=== PATIENT | female | born 1955 | race Caucasian/White ===

== ENCOUNTER 2018-09-06 12:21 | Outpatient (CLI) | payer OTHER ==
[2018-09-06 14:12] LABS: Hemoglobin 15.4 g/dL (12.0-16.0); Mean Corpuscular HGB CONC 32.7 g/dL (32.0-36.0); Mean Corpuscular Hemoglobin 29.5 pg (27.0-31.0); Mean Corpuscular Volume 90.4 fL (78.0-98.0); Mean Platelet Volume 7.4 fL (7.4-10.4); Platelet Count 221 thou/uL (130-400); White Blood Cell (WBC) Count 6.9 thou/uL (4.8-10.8)
[2018-09-06 14:17] LABS: Prothrombin Time 13.5 SEC (12.0-14.7)
[2018-09-06 14:32] LABS: Anion Gap 11 mmol/L (10-20); BUN (Urea Nitrogen) 17 mg/dL (9.8-20.1); Calc. Creatinine Clearance 0 mL/min (70-130); Carbon Dioxide 29 mmol/L (22-29); Chloride 103 mmol/L (98-107); Estimated GFR-MDRD 80; Glucose 111 mg/dL (70-105); Potassium 4.7 mmol/L (3.5-5.1); Sodium 138 mmol/L (136-145)
[2018-09-06 17:03] LABS: Bilirubin Negative (Negative); Blood, Urine Negative (Negative); Glucose, Urine (Dipstick) Negative (Negative); Leukocyte Negative (Negative); Nitrite Negative (Negative); Protein, Urine (Dipstick) Negative (Neg-Trace); Specific Gravity, Urine 1.025 (1.005-1.030); Urobilinogen 0.2 mg/dL (0.2-1.0)
[2018-09-06 17:05] LABS: Clarity CLEAR (Clear)
[2018-09-06 17:13] LABS: Bacteria/HPF None Seen HPF (None Seen); RBC/HPF None Seen HPF (0-3); Squamous Epithelial 0-3 HPF (0-3); WBC/HPF None Seen HPF (0-3)
[2018-09-06 17:14] LABS: Hyaline Casts/LPF NONE SEEN LPF (0-3 Hyaline)
== END 2018-09-06 12:22 | disposition home or self-care (01) ==
LOC: LABBT 12:21
PROVIDERS: ATTEND Orthopaedic Surgery
DX: Z01.812 Encounter for preprocedural laboratory examination (principal); M17.11 Unilateral primary osteoarthritis, right knee
CPT/HCPCS: 80048; 81001; 85027; 85610; 87081; 93005; 93010

== ENCOUNTER 2018-09-14 14:17 | Outpatient (CLI) | payer OTHER | END 2018-09-14 14:18 | disposition home or self-care (01) | LOC: LABBT 14:17 | PROVIDERS: ATTEND Orthopaedic Surgery | DX: Z01.812 Encounter for preprocedural laboratory examination (principal); M17.11 Unilateral primary osteoarthritis, right knee | CPT/HCPCS: 86850; 86900; 86901 ==

== ENCOUNTER 2018-09-18 05:32 | Day surgery (SDC) | payer OTHER ==
[2018-09-06 12:56] VITALS: BMI 34.6
[2018-09-18] MEDS ORDERED: Vancomycin HCl 1.5 GM in Sodium Chloride 0.9% 250 ML 300 ML IVPB SCH ×3 (06:00→18:00)
[2018-09-18] MEDS ORDERED: CEFAZOLIN/Water 2 GM/20 ML SYRINGE ONE (06:39)
[2018-09-18] MEDS ORDERED: Sodium Chloride 0.9% 100 ML ONE (06:39)
[2018-09-18] MEDS ORDERED: Fentanyl 100 MCG/2 ML VIAL ONE ×2 (06:46→10:08)
[2018-09-18] MEDS ORDERED: Midazolam HCl 2 mg/2 ml Vial ONE (06:46)
[2018-09-18] MEDS ORDERED: Bupivacaine/Epinephrine 0.25% 30 ML VIAL ONE (07:00)
--- NOTE | 2018-09-18 07:10 | HP ---
PREOPERATIVE DIAGNOSIS: Right knee osteoarthritis. HISTORY OF PRESENT ILLNESS: Ms. Fink is a 62-year-old female presenting with increasing pain over the last 3 months with a history of previous greater than a year of pain. The patient has history of bariatric surgery. Pain rated from 9-10/10, pain localized to medial and lateral knee. Patient has had several injections with good relief. PAST MEDICAL HISTORY: Diabetes, results are very good, bypass, hypothyroidism, osteopenia, foot frac ture. PAST SURGICAL HISTORY: Tonsillectomy, lap band, bypass, open reduction internal fixation of left hip 2014. ALLERGIES: No known drug allergies. SOCIAL HISTORY: Nonsmoker, nondrinker. The patient lives in [place]. is at bedside. CURRENT MEDICATIONS: Include Biotin, Ocuvite, vitamin D3, vitamin B12, Dexilant, Cymbalta, hydrochlo rothiazide, iron, levothyroxine, magnesium, niacin, vitamins, simvastatin and PreviDent past e. VITAL SIGNS: BMI 33. Afebrile. GENERAL: Alert and oriented female resting in bed in no acute distress. RIGHT KNEE: 0-110 degrees, medial joint line pain. The patient has a subtle valgus. The patient is neurovascularly intact. She has got brisk cap refill, antalgic gait. Her soft compartments. The p atient's previous x-rays show tricompartmental osteoarthritis. IMPRESSION: 1. Right knee osteoarthritis. 2. Bypass surgery. ASSESSMENT AND PLAN: I discussed with the patient the risks and benefits of right total knee arthrop lasty to include pain, scar, bleeding, infection, fracture, increased risk of fracture, decreased ran ge of motion or strength, need for further surgeries, loss of life or limb, blood clots. They unders tood the risks and benefits and elected to proceed. She will undergo the Galateo protocol, receiv ed preoperative antibiotics. We will follow in house.
[2018-09-18] MEDS ORDERED: Promethazine HCl 25 MG/ML VIAL IM PRN ×3 (07:44→12:44)
[2018-09-18] MEDS ORDERED: traMADol HCl 50 MG TAB PO PRN ×3 (07:44→12:44)
[2018-09-18] MEDS ORDERED: Zolpidem Tartrate 5 MG TAB PO PRN ×2 (07:44→12:44)
[2018-09-18] MEDS ORDERED: Ondansetron PF 4 MG/2 ML Vial IVP PRN ×2 (07:44→12:44)
[2018-09-18] MEDS ORDERED: HYDROcodone/Acetaminophen 10/325 mg Tablet PO PRN ×3 (07:44→12:44)
[2018-09-18] MEDS ORDERED: Ropivacaine HCl/PF 250 ML in Premix Bag 1 BAG NERVE BLCK SCH (07:44)
[2018-09-18] MEDS ORDERED: Fentanyl 100 MCG/2 ML VIAL IV PRN (07:45)
[2018-09-18] MEDS ORDERED: Ondansetron HCl/PF 4 MG/2 ML Vial IVP PRN ×2 (09:22→10:32)
[2018-09-18] MEDS ORDERED: Promethazine HCl 25 MG/ML VIAL SLOW IVP PRN (09:22)
[2018-09-18] MEDS ORDERED: Tranexamic Acid 1,000 MG in Sodium Chloride 0.9% 100 ML IVPB SCH (09:45)
[2018-09-18] MEDS ORDERED: Ropivacaine 0.2% 550 ML 550 ML NERVE BLCK SCH (10:45)
--- NOTE | 2018-09-18 10:59 | OP ---
DATE OF PROCEDURE: 09/18/2018 PREOPERATIVE DIAGNOSIS: Right knee osteoarthritis, valgus. POSTOPERATIVE DIAGNOSIS: Right knee osteoarthritis, valgus. PROCEDURE PERFORMED: Right total knee arthroplasty. STAFF: West Rosado M.D. VICE PRESIDENT OF NEWS: INGA Cota ANESTHESIA: The patient received general endotracheal intubation with an adductor canal and a latera l sciatic. ESTIMATED BLOOD LOSS: 100 mL. TOURNIQUET TIME: 76 minutes at 300 mmHg. ANTIBIOTICS: Ancef 2 grams, vancomycin 1.5, TXA 1 gram. IMPLANTS: The patient received a [place] [employer] size 4, CS 9 mm poly, size 4 baseplate, A32 symme tric TX3 patella and a size 4 right CR femur. COMPLICATIONS: None. HISTORY OF PRESENT ILLNESS: Ms. Fink is a pleasant 62-year-old female who presented to me with rig ht knee pain. The patient has had a bariatric surgery. Pain is 9/10 with standing. The patient has a history of right knee pain. Nonsmoker. I discussed with patient the risks and benefits of a righ t total knee arthroplasty to include pain, scar, bleeding, infection, damage to vital structures, dec reased range of motion or strength, continued pain despite surgical intervention, damage to vital str uctures, loss of life or limb. The patient understood the risks and benefits of procedure and electe d to proceed. PROCEDURE IN DETAIL: Time out was performed designating the patient's right lower extremity as the o perative site based on sight, consents, marking. At the completion of timeout the patient's right lo wer extremity was prepped and draped in sterile fashion. Tourniquet was brought up and left up for a total of 76 minutes. Anterior midline approach was medial patellar arthrotomy. There was a large o steophyte which was removed. We did a medial soft tissue release. We excised the fat pad, everted t he patella, exposed the femur, took down some osteophytes anteriorly. We mapped out and cut the dist al femur at about 1 and 8 and 0 and 8 for a skin cut lateral condyle given the valgus deformity. We then placed 3 degree external rotation guide, pinned it into position and sized to a size 4, cut a 4 block, anterior, posterior chamfer cuts, removing all the osteophytes. We then placed a pickle fork in position and brought out patella for a tibia, we cut 4, 5 and 3, 5 off the high side which was on the lateral side of tibia. We removed osteophytes as needed. After we had removed all the bones, we placed our lamina janitorial tech, removed medial and lateral meniscus posterior and decompressed the PCL a nd took out the ACL and decompress the ligaments laterally and medially and then floated a 4 mm tray in the tibia with flexion, extension, being in line with the tibial chiquita. I felt like we had overall good alignment, I liked the position. The patient came to full extension, only a few degrees shy of full extension. We gave a posterior cruciate release after we finalized, we everted her patella, cut it from about 24 mm down to about 14-13 mm. We drilled our A32 symmetric patella, tracked. The pat ient had overall good alignment came into what appeared to be full extension, although she was slight ly hyperextend on the opposite contralateral side. The patient had good stability varus and valgus a nd good mid flexion stability, good posterior drawer, stable drawer. We then washed. We drilled our lugs for our femur, cut our keel for our tibia, removed all implants, washed the joint out. We then placed our tibial baseplate, removed excess cement, placed our femoral baseplate, placed our poly, _ ___ removed excess cement and placed our patella, removed excess cement, washed and closed the arthro angeilka. I everted the patella. Cemented the patella into place, clamped down removed excess cement. We closed with 2 Quill, 0 Quill, 2-0 Quill, and glue. The patient was placed in a soft tissue dressing. She will be weightbearing as tolerated. Follow up in [facility].
[2018-09-18] MEDS ORDERED: Ropivacaine 0.5% HCl/PF (150 MG/30 ML VIAL) ONE (12:40)
[2018-09-18] MEDS ORDERED: Bupivacaine 0.25% HCL 30 ML VIAL ONE (12:40)
[2018-09-18] MEDS ORDERED: Fentanyl 100 MCG/2 ML VIAL SLOW IVP PRN ×2 (12:44)
[2018-09-18] MEDS ORDERED: Aspirin 81 mg Enteric Coated Tablet PO SCH ×2 (12:44→14:00)
[2018-09-18] MEDS ORDERED: Ketorolac Tromethamine 30 MG/ML VIAL IVP PRN (12:44)
[2018-09-18] MEDS ORDERED: Ferrous Gluconate 324 MG TAB PO SCH ×2 (12:44→14:00)
[2018-09-18] MEDS ORDERED: Acetaminophen 325 MG TAB PO PRN (12:44)
[2018-09-18] MEDS ORDERED: diphenhydrAMINE 25 MG CAP PO PRN (12:44)
[2018-09-18] MEDS ORDERED: Multivitamin W/ Minerals 1 TAB PO SCH ×2 (12:44→14:00)
[2018-09-18] MEDS ORDERED: Senokot S 8.6-50 MG TAB PO SCH ×2 (12:44→14:00)
--- NOTE | 2018-09-18 12:52 | RAD ---
RIGHT KNEE TWO VIEWS: INDICATIONS: Total knee postop knee. COMPARISON: Right knee radiographs dated 07/09/2015. FINDINGS: Since the comparison examination, there has been interval placement of a right total knee prosthesis. There is intraarticular and scattered periarticular soft tissue gas, consistent with the patient's recent postop stay. The prosthetic components project in the expected position. No acute fracture i s evident. IMPRESSION: Postoperative right knee. POS: C
[2018-09-18] MEDS ORDERED: Dexamethasone 20 MG/5 ML VIAL ONE (13:21)
[2018-09-18] MEDS ORDERED: Ketorolac Tromethamine 30 MG/ML VIAL ONE (13:21)
[2018-09-18] MEDS ORDERED: Ondansetron PF 4 MG/2 ML Vial ONE (13:21)
[2018-09-18] MEDS ORDERED: PROPOFOL 200 MG/20 ML VIAL ONE (13:21)
[2018-09-18] MEDS: Sodium Chloride 0.9% 1,000 ML IV SCH ×3 (15:25→23:30)
[2018-09-18] MEDS: HYDROcodone/Acetaminophen 10/325 mg Tablet PO PRN ×2 (16:35→21:51)
[2018-09-18] MEDS: CEFAZOLIN/Water 2 GM/20 ML SYRINGE SLOW IVP SCH ×2 (17:41→21:50)
[2018-09-18] MEDS: Aspirin 81 mg Enteric Coated Tablet PO SCH (21:47)
[2018-09-18] MEDS: Atorvastatin Calcium 10 MG TAB PO SCH (21:47)
[2018-09-18] MEDS: Ferrous Gluconate 324 MG TAB PO SCH (21:47)
[2018-09-18] MEDS: Senokot S 8.6-50 MG TAB PO SCH (21:55)
--- NOTE | 2018-09-18 22:30 | CON ---
DATE OF CONSULTATION: 09/18/2018 PRIMARY CARE PHYSICIAN: BESSIE Juárez ATTENDING PHYSICIAN: West Rosado M.D. REASON FOR CONSULTATION: Aid in medical management. HOSPITAL COURSE: Ms. Fink is a pleasant 62-year-old female that has a history of severe osteoarthr itis and was admitted for an elective right total knee replacement. She has actually undergone the p rocedure earlier today and has no complaints. She says her knee is a bit sore, but otherwise she den ies any chest pain. She denies feeling short of breath, no nausea, no vomiting, no feeling dizzy, no lightheadedness, no generalized weakness, no numbness or tingling in any of her extremities. The ruba choi also has a history of obesity and she is status post Tres-en-Y gastric bypass surgery. She say s prior to that, she was diabetic, but since having the surgery, she he is no longer diabetic and martínez s not take any specific treatment for it, nor does she check her blood sugars on a regular basis. Cherry coello says that she has not had any complications other than some reflux symptoms after the surgery. REVIEW OF SYSTEMS: All systems were reviewed and are negative except for that mentioned in the histo ry of present illness. PAST MEDICAL HISTORY: Significant for osteoarthritis, previous history of diabetes mellitus, hypothy roidism, a pulmonary nodule. PAST SURGICAL HISTORY: She has had surgery for diverticulitis, tonsillectomy, lap band surgery and t hat was a vertical lap band, gastric bypass with Tres-en-Y, left total hip replacement, cholecystecto my, , bilateral tubal ligation. SOCIAL HISTORY: She is a nonsmoker. She occasionally drinks, but she says very occasionally. She i s . FAMILY HISTORY: Significant for depression, hypertension, seizures, Alzheimer's, colon cancer, diabe danny, and alcohol dependence. ALLERGIES: No known drug allergies. MEDICATIONS: Include duloxetine 60 mg in the morning and 30 in the evening, Dexilant 30 mg daily, si mvastatin 20 mg daily, Synthroid 125 mcg daily, hydrochlorothiazide 25 mg daily, iron 18 mg daily, ma gnesium 25 mg daily, niacin 500 mg at bedtime, vitamins once daily, Ocuvite and biotin. PHYSICAL EXAMINATION: GENERAL: She is alert and oriented. She appears to be in no acute distress. She is well-developed and well-nourished. VITAL SIGNS: Blood pressure was 113/53, heart rate 70, respiratory rate is 18. Temperature, she is afebrile. HEENT: Pupils are equal, round, and reactive. Extraocular muscles are intact. Sclerae are anicteri c. Throat: There is no erythema, no exudate. NECK: No adenopathy, no bruits. LUNGS: Clear to auscultation. There is no wheezing, no rales, no rhonchi. CARDIOVASCULAR: She has a normal S1 and S2. I did not appreciate an S3 or S4. No murmurs, clicks, no rubs. ABDOMEN: Obese, it is soft, nontender, nondistended. Positive for bowel sounds. There is no reboun d, no guarding. EXTREMITIES: She has got trace pedal edema. There is no calf tenderness. No warmth. The right kne e is dressed. She has got good dorsalis pedis pulses bilaterally. Good capillary refill. NEUROLOGIC: Cranial nerves II-XII are intact and her muscle strength in both her upper and lower ext remities is intact. SKIN AND INTEGUMENT: She has some calluses under the balls of both her feet of the heels. Otherwise , there are no other skin lesions. Currently, there is no current lab results for review. She had l ab work done on the , the CBC which was normal. Chemistry panel which was normal. A1c was 6.0 a nd she had an EKG done showing sinus rhythm and rate was [address] wave changes. ASSESSMENT AND PLAN: This is a pleasant 62-year-old female who is admitted for an elective right tot al knee replacement. The Hospitalist Service has been asked to help follow along for medical managem ent. 1. Diabetes mellitus. This is now diet controlled only, is essentially "cured" after having the gas tric bypass surgery; therefore unless she demonstrate any random elevation in her blood glucose, we w ill hold off on any Accu-Cheks or sliding scale at this time. 2. Hypothyroidism. She is clinically euthyroid and we will continue Synthroid. 3. Gastroesophageal reflux disease. We will continue Dexilant or a PPI on formulary. 4. History of gastric bypass surgery. She will need to continue on her vitamins and mineral supplem entation. Severe osteoarthritis, status post right total knee replacement, this is being managed by Orthopedic Surgery.
[2018-09-19] MEDS: HYDROcodone/Acetaminophen 10/325 mg Tablet PO PRN ×5 (02:04→19:09)
[2018-09-19] MEDS: Ketorolac Tromethamine 30 MG/ML VIAL IVP PRN (03:37)
[2018-09-19 06:24] LABS: Hemoglobin 11.3 g/dL (12.0-16.0); Mean Corpuscular HGB CONC 32.7 g/dL (32.0-36.0); Mean Corpuscular Hemoglobin 29.4 pg (27.0-31.0); Mean Corpuscular Volume 90.1 fL (78.0-98.0); Mean Platelet Volume 7.2 fL (7.4-10.4); Platelet Count 154 thou/uL (130-400); RBC Distribution Width 11.8 % (11.5-14.5); Red Blood Cell (RBC) Count 3.83 mill/uL (4.20-5.40); White Blood Cell (WBC) Count 11.4 thou/uL (4.8-10.8)
[2018-09-19] MEDS: Levothyroxine Sodium 125 MCG TAB PO SCH (06:25)
[2018-09-19] MEDS: Cyanocobalamin (Vitamin B-12) 1,000 MCG TAB PO SCH (09:01)
[2018-09-19] MEDS: Senokot S 8.6-50 MG TAB PO SCH ×2 (09:02→20:22)
[2018-09-19] MEDS: DULoxetine 30 MG CAP PO SCH (09:02)
[2018-09-19] MEDS: Hydrochlorothiazide 25 MG TAB PO SCH (09:03)
[2018-09-19] MEDS: Ferrous Gluconate 324 MG TAB PO SCH ×2 (09:03→20:22)
[2018-09-19] MEDS: Magnesium Oxide 250 MG TAB PO SCH (09:03)
[2018-09-19] MEDS: Aspirin 81 mg Enteric Coated Tablet PO SCH ×2 (09:03→20:22)
[2018-09-19] MEDS: Prenatal Vitamin 1 TAB PO SCH (09:03)
[2018-09-19] MEDS: Multivitamin W/ Minerals 1 TAB PO SCH (09:03)
[2018-09-19] MEDS: Sodium Chloride 0.9% 1,000 ML IV SCH ×2 (09:04→19:45)
[2018-09-19] MEDS: Atorvastatin Calcium 10 MG TAB PO SCH (20:22)
[2018-09-20] MEDS: HYDROcodone/Acetaminophen 10/325 mg Tablet PO PRN ×3 (03:00→12:42)
[2018-09-20] MEDS: Sodium Chloride 0.9% 1,000 ML IV SCH ×2 (04:50→15:55)
[2018-09-20 06:06] LABS: Hemoglobin 11.5 g/dL (12.0-16.0); Mean Corpuscular HGB CONC 32.6 g/dL (32.0-36.0); Mean Corpuscular Hemoglobin 29.6 pg (27.0-31.0); Mean Corpuscular Volume 90.7 fL (78.0-98.0); Mean Platelet Volume 7.4 fL (7.4-10.4); Platelet Count 143 thou/uL (130-400); Red Blood Cell (RBC) Count 3.87 mill/uL (4.20-5.40); White Blood Cell (WBC) Count 8.2 thou/uL (4.8-10.8)
[2018-09-20] MEDS: Levothyroxine Sodium 125 MCG TAB PO SCH (06:35)
[2018-09-20] MEDS: Ketorolac Tromethamine 30 MG/ML VIAL IVP PRN (08:17)
[2018-09-20] MEDS: DULoxetine 30 MG CAP PO SCH (08:24)
[2018-09-20] MEDS: Magnesium Oxide 250 MG TAB PO SCH (08:24)
[2018-09-20] MEDS: Prenatal Vitamin 1 TAB PO SCH (08:25)
[2018-09-20] MEDS: Multivitamin W/ Minerals 1 TAB PO SCH (08:25)
[2018-09-20] MEDS: Hydrochlorothiazide 25 MG TAB PO SCH (08:26)
[2018-09-20] MEDS: Senokot S 8.6-50 MG TAB PO SCH (08:26)
[2018-09-20] MEDS: Cyanocobalamin (Vitamin B-12) 1,000 MCG TAB PO SCH (08:26)
[2018-09-20] MEDS: Aspirin 81 mg Enteric Coated Tablet PO SCH (08:27)
[2018-09-20] MEDS: Ferrous Gluconate 324 MG TAB PO SCH (08:27)
[2018-09-20 12:41] VITALS: BP 130/73; TEMP 98.1
== END 2018-09-20 16:07 | disposition home or self-care (01) ==
LOC: SDC 05:32 → SJJU 07:37 → SDC 09-20 16:07
PROVIDERS: ATTEND Orthopaedic Surgery
PROC: 0SRC0J9 Replacement of Right Knee Joint with Synthetic Substitute, Cemented, Open Approach (ICD-10-PCS; principal; 2018-09-18)
DX: M17.11 Unilateral primary osteoarthritis, right knee (principal); M25.761 Osteophyte, right knee; M21.00 Valgus deformity, not elsewhere classified, unspecified site; E11.9 Type 2 diabetes mellitus without complications; M85.80 Other specified disorders of bone density and structure, unspecified site; E03.9 Hypothyroidism, unspecified; K21.9 Gastro-esophageal reflux disease without esophagitis; E66.9 Obesity, unspecified; Z68.34 Body mass index [BMI] 34.0-34.9, adult; Z79.899 Other long term (current) drug therapy; Z98.84 Bariatric surgery status
CPT/HCPCS: 36415; 85027; 90471; 90686; 96374; A4306; C1713; C1776; G0008; G8978-GP-CM; G8979-GP-CJ; J1100; J1885; J2250; J2405; J2704; J2795; J3010; J3370; J7050; S0020

== ENCOUNTER 2019-05-13 14:24 | Outpatient (CLI) | payer OTHER ==
--- NOTE | 2019-06-10 16:22 | MMO ---
Bilateral MAMMO Bilat Screen [facility]. CLINICAL HISTORY: Patient is 63 years old and is seen for screening. The patient has no family history of breast cancer. The patient has no personal history of cancer. VIEWS: The views performed were: bilateral craniocaudal with tomosynthesis and bilateral mediolateral oblique with tomosynthesis. FILMS COMPARED: The present examination has been compared to prior imaging studies performed at [facility] on 01/18/2008, 02/24/2010 and 05/09/2013. MAMMOGRAM FINDINGS: There are scattered fibroglandular densities. There are no suspicious masses, suspicious calcifications, or new areas of architectural distortion. IMPRESSION: THERE IS NO MAMMOGRAPHIC EVIDENCE OF MALIGNANCY. A ROUTINE FOLLOW-UP MAMMOGRAM IN 1 YEAR IS RECOMMENDED. THE RESULTS OF THIS EXAM WERE SENT TO THE PATIENT. ACR BI-RADS Category 1 - Negative MAMMOGRAPHY NOTE: 1. A negative mammogram report should not delay a biopsy if a dominant of clinically suspicious mass is present. 2. Approximately 10% to 15% of breast cancers are not detected by mammography. 3. Adenosis and dense breasts may obscure an underlying neoplasm. Reported by: LIYAH TAVARES MD Electonically Signed: [id number]
== END 2019-05-13 14:25 | disposition home or self-care (01) ==
LOC: BICMAMMO 14:24
PROVIDERS: ATTEND Nurse Practitioner
DX: Z12.31 Encounter for screening mammogram for malignant neoplasm of breast (principal)
CPT/HCPCS: 77063; 77067

== ENCOUNTER 2020-09-25 22:33 | Inpatient (IN) | payer OTHER ==
[2020-09-26 00:56] LABS: Troponin I Less than 0.010 ng/mL (< 0.028)
[2020-09-26] MEDS ORDERED: Ondansetron ODT 4 MG TAB SL PRN (02:00)
[2020-09-26] MEDS ORDERED: Ondansetron PF 4 MG/2 ML Vial IVP PRN ×2 (02:00→14:18)
[2020-09-26 02:58] VITALS: BMI 30.8
[2020-09-26] MEDS: Dextrose 5 % And 0.9 % NaCl 1,000 ML IV SCH ×4 (02:58→20:05)
[2020-09-26 03:45] LABS: Troponin I Less than 0.010 ng/mL (< 0.028)
[2020-09-26] MEDS ORDERED: Dextrose 5 % And 0.9 % NaCl 1,000 ML IV SCH ×2 (08:45→10:30)
[2020-09-26] MEDS: DULoxetine 60 MG CAP PO SCH (10:06)
[2020-09-26] MEDS: Gabapentin 300 MG CAP PO SCH (10:07)
[2020-09-26] MEDS: Enoxaparin Sodium 40 MG/0.4 ML SYRINGE SC SCH (10:09)
[2020-09-26] MEDS: Famotidine/PF 20 mg/2ml Vial SLOW IVP SCH ×2 (10:09→20:05)
--- NOTE | 2020-09-26 10:49 | RAD ---
PORTABLE CHEST: 09/26/20 PROVIDED CLINICAL HISTORY: Small bowel obstruction. COMPARISON: 09/25/2020 FINDINGS: The cardiac and mediastinal silhouette is unchanged in appearance. Enteric catheter is noted, the tip of which overlies the medial left upper quadrant. No focal consolidation, pleural fluid or pneumotho rax apparent. Dilated loops of gas-filled bowel again overly the abdomen. There is no evidence for pn eumoperitoneum. IMPRESSION: No evidence for an acute cardiopulmonary process. POS: DAFNE
--- NOTE | 2020-09-26 11:19 | HP ---
CHIEF COMPLAINT: Abdominal pain, nausea, vomiting. HISTORY OF PRESENT ILLNESS: The patient is a 64-year-old female with a history of depression and hypothyroidism, who presents to the hospital with complaints of abdominal pain, nausea, and vomiting x1 day. The patient stated that she had some green chili cheeseburger at [facility]. An hour later, she started having abdominal bloating. She could not burp nor she could have any flatus. At this time, she has gotten very nauseous and threw up emesis about 8 times. She also complained of abdominal pain. Denies any diarrhea. The patient states that this never happened to her before. The patient has had a lap band followed by Tres-en-Y, followed by a cholecystectomy in the past. She states that she has never had a bowel obstruction. She denies any fevers or chills, and she felt well before this incident. PAST MEDICAL HISTORY: She has a history of hypothyroidism. She has a history of depression and obesity. ALLERGIES: SHE HAS NO KNOWN DRUG ALLERGIES. HOME MEDICATIONS: As of the following, she is on; 1. Iron 65 mg p.o. daily. 2. Hydrochlorothiazide 25 daily. 3. Biotin 1 cap daily. 4. Duloxetine 90 mg daily. 5. Gabapentin 300 mg daily. 6. Levothyroxine 125 mcg daily. 7. Simvastatin 20 mg p.o. daily. 8. Protonix 40 mg p.o. daily. FAMILY HISTORY: Father has heart disease. SOCIAL HISTORY: Denies any alcohol use, drug use, or smoking history. She is a full code. REVIEW OF SYSTEMS: All negative except for the ones mentioned above the HPI. PAST SURGICAL HISTORY: As I mentioned, she had cholecystectomy, a lap band, and a Tres-en-Y. She has had right knee and right shoulder surgery. LABORATORY RESULTS: As of the following; WBCs of 18.1, hemoglobin of 15.7, hematocrit of 48.6, and platelets of 199. She has no bandemia. Chemistries; sodium of 142, potassium of 3.5, BUN of 17, creatinine 0.79. Her troponin was mildly elevated at 0.031. The following ones were normal. Her lipase was 25. She did have a CT of abdomen and pelvis done, which indicated that she did have a mild small bowel obstruction. There is a transition point beyond which the ileum is normal in caliber. ASSESSMENT AND PLAN: The patient is a very pleasant 64-year-old female who presents to the hospital with complaints of abdominal pain. 1. Small-bowel obstruction, acute. The patient has had abdominal surgeries in the past. We will get Surgical Services for further evaluation. She does have an NG tube. She will keep her n.p.o. We will start IV hydration. We will get a KUB in the morning. 2. Mildly elevated troponins, most likely demand related. She has no cardiac history. EKG does not show any acute abnormalities. We will get an echocardiogram and continue to monitor her. She has no chest pain. This is most likely from the retching and throwing up. 3. Hypothyroidism. We will continue her home medications for now. 4. Obesity. The patient states that she is very careful about what she eats and even with a cheeseburger, she did not eat the whole thing. She only had a 3rd of the cheeseburger with a little bit of fries and some Dr Pepper. 5. Deep venous thrombosis prophylaxis. We will put the patient on subcu heparin. Job ID: [id number]
[2020-09-26] MEDS: Acetaminophen 325 MG Suppository PR PRN ×2 (14:45→20:53)
--- NOTE | 2020-09-26 16:27 | PDOC.BPN ---
- Brief Progress Note Encounter Date: 09/26/20 Encounter Time: 12:40 Doing well s/p oratory laparotomy with colon resection and replacement of ostomy. Postoperative pain well controlled with current regimen. Tolerating enteral diet, without nausea or vomiting and minimal gastric residuals. Transition to T-tube and tolerating well EXAM: VS: T 98 4 HR 90 BP 133/72 RR General: No acute distress, resting comfortably Pulmonary: No dyspnea or difficulty breathing. Tolerating T-tube Abdomen: Soft, non-distended, wound VAC in place. Ostomy viable with stool output and gas. Previous ostomy drainage clearing up with Berkley in place. CV: Regular rate and rhythm, palpable distal pulses Extremities: Stable edema I/O: Tube feeds at 10 cc an hour 2340 UOP Left lower quadrant drain 275 Laboratory analysis reviewed and demonstrates improvement in white blood cell count from 22.7-18.1. Also decreasing bandemia from 33% to 24%. Hemoglobin stable at 9.6. Mild hyponatremia at 3.4. PLAN: Wean to trach collar as tolerated Continued hemodialysis per nephrology recommendations Advance tube feeds to goal Wound VAC management per wound care team Wean sedation as tolerated
--- NOTE | 2020-09-26 16:33 | PDOC.GSCN ---
Surgery Consult: HPI - Consult details Date: 09/26/20 Time: 12:00 Reason for consult: small bowel obstruction History of present illness: 09/26/20 16:32 64-year-old female with a history of vertical banded gastroplasty, revised to a Tres-en-Y gastric bypass in 2012 presents with 1 day history of abdominal pain. The pain is described as sharp and like severe gas pains. It is located in the upper abdomen. Her discomfort is associated with nausea and vomiting. Her bowel movements have been relatively normal with her last movement being yesterday morning before the onset of pain. Currently she reports that she is feeling much better with decreased pain. She also reports that she had a large incisional hernia repair at the time of her revisional surgery. Surgery Consult: ROS - Review of Systems All systems: 10 systems reviewed and no additional complaints unless stated below. Surgery Consult: [facility] Past Medical History: Diabetes mellitus Hyperlipidemia Diverticulitis Depression Past Surgical History: Appendectomy Vertical banded gastroplasty revised to Tres-en-Y gastric bypass Cholecystectomy Tonsillectomy Tubal ligation Surgery Consult: Exam - Vital signs Vital signs: Vital Signs - Most Recent Temp Pulse Resp BP Pulse Ox 98.2 F 72 16 165/75 H 98 09/26/20 15:47 09/26/20 15:47 09/26/20 15:47 09/26/20 15:47 09/26/20 15:47 - Physical Exam General: moderate distress, no distress, severe distress, well developed, well nourished ENT: no congestion, no hearing loss, normal mucosa, normal nares, normal pinna Neck: no bruits, no lymphadectomy, no masses, no juan distention, trachea midline Respiratory: clear to auscultation, clear to percussion, normal expansion, normal respiratory effort Abdomen: soft, tender Hernia: none Integumentary: no abnormal pigmentation, no growths, no rash Neurologic: normal coordination, normal sensation Musculoskeletal: normal gait, normal posture Psychiatric: memory intact, oriented to time, oriented to person, oriented to place, speech is normal Surgery Consult: Meds - Medications Medications: Current Medications Acetaminophen (Acetaminophen 325 Mg Suppository) 325 mg OH Q6H PRN PRN Reason: Headache/Fever or Pain Last Admin: 09/26/20 14:45 Dose: 325 mg Documented by: Atorvastatin Calcium (Atorvastatin Calcium 10 Mg Tab) 10 mg PO HS [facility] Duloxetine HCl (Duloxetine 60 Mg Cap) 90 mg PO DAILY [facility] Last Admin: 09/26/20 10:06 Dose: Not Given Documented by: Enoxaparin Sodium (Enoxaparin Sodium 40 Mg/0.4 Ml Syringe) 40 mg SC 0900 [facility] Last Admin: 09/26/20 10:09 Dose: 40 mg Documented by: Famotidine (Famotidine/Pf 20 Mg/2ml Vial) 20 mg SLOW IVP Q12HR [facility] Last Admin: 09/26/20 10:09 Dose: 20 mg Documented by: Gabapentin (Gabapentin 300 Mg Cap) 300 mg PO DAILY [facility] Last Admin: 09/26/20 10:07 Dose: Not Given Documented by: Dextrose/Sodium Chloride (D5 0.9% Ns) 1,000 mls @ 100 mls/hr IV .Q10H [facility] Last Admin: 09/26/20 11:02 Dose: 1,000 mls Documented by: Levothyroxine Sodium (Levothyroxine Sodium 125 Mcg Tab) 125 mcg PO 0600 [facility] Ondansetron HCl (Ondansetron Pf 4 Mg/2 Ml Vial) 4 mg IVP Q6H PRN PRN Reason: Nausea/Vomiting Last Admin: 09/26/20 14:45 Dose: 4 mg Documented by: - Allergies Allergies/Adverse Reactions: Allergies Allergy/AdvReac Type Severity Reaction Status Date / Time No Known Allergies Allergy Verified 09/26/20 02:32 Surgery Consult: Results - Labs Lab results: Laboratory Results Troponin I Less than 0.010 ng/mL (< 0.028) 09/26/20 03:13 Labs from outside hospital unavailable for review. No new labs since admission. - Radiology Interpretation CT scan - abdomen Additional comments: Demonstrates dilation of the proximal small bowel loops to include the biliopancreatic limb and the Tres limb. Jejunojejunostomy appears patent. Does not appear to be an internal hernia. Obvious transition point in the mid abdomen. Mild dilation of of remnant antrum. It appears that the fundus was resected at the time of her revision. Surgery Consult: A/P - Problem (1) Small bowel obstruction Current Visit: Yes Code(s): K56.609 - UNSP INTESTNL OBST, UNSP TO PARTIAL VERSUS COMPLETE OBST Status: Acute - Plan Plan: Feeling better. Continue conservative management with nasogastric decompression and IV fluids. Will order upper GI with small bowel follow-through to better delineate her revisional anatomy.
--- NOTE | 2020-09-26 18:38 | RAD ---
KUB: 09/26/20 PROVIDED CLINICAL HISTORY: Small bowel obstruction. FINDINGS: Correlation is made with the CT examination dated 09/25/20. The dilated gas filled loops of small bowel described on the CT examination are less conspicuous radi ographically, predominating within the left upper quadrant on the current study. The supine nature of the examination is not sensitive for detection of pneumoperitoneum. Partially visualized enteric cat heter, tip of which overlies the expected region of gastroesophageal junction. Surgical clips and sut ure material are noted overlying the abdomen. IMPRESSION: Persistent dilated loops of gas filled small bowel within the left upper quadrant. POS: DAFNE
[2020-09-26] MEDS: Atorvastatin Calcium 10 MG TAB PO SCH (20:05)
[2020-09-27] MEDS ORDERED: diphenhydrAMINE 50 MG/ML VIAL IVP SCH (00:45)
[2020-09-27] MEDS: Acetaminophen 325 MG Suppository PR PRN (02:14)
[2020-09-27] MEDS: Dextrose 5 % And 0.9 % NaCl 1,000 ML IV SCH (06:16)
[2020-09-27] MEDS: Levothyroxine Sodium 125 MCG TAB PO SCH (06:16)
[2020-09-27 06:46] LABS: #Eosinphils 0.1 thou/uL (0.0-0.7); #Monocytes 0.8 thou/uL (0.11-0.59); #Neutrophils 5.6 thou/uL (1.40-6.50); %Basophils 0.2 % (0.0-1.0); %Eosinophils 1.2 % (0.0-10.0); %Lymphocytes 23.2 % (21.0-51.0); %Monocytes 8.9 % (0.0-10.0); %Neutrophils 66.4 % (42.0-75.0); Hemoglobin 13.1 g/dL (12.0-16.0); Mean Corpuscular HGB CONC 32.7 g/dL (32.0-36.0); Mean Corpuscular Hemoglobin 29.3 pg (27.0-31.0); Mean Corpuscular Volume 89.6 fL (78.0-98.0); Mean Platelet Volume 8.9 fL (7.4-10.4); Platelet Count 159 thou/uL (130-400); RBC Distribution Width 12.7 % (11.5-14.5); Red Blood Cell (RBC) Count 4.47 mill/uL (4.20-5.40); White Blood Cell (WBC) Count 8.5 thou/uL (4.8-10.8)
[2020-09-27] MEDS: DULoxetine 60 MG CAP PO SCH (08:01)
[2020-09-27] MEDS: Gabapentin 300 MG CAP PO SCH (08:01)
[2020-09-27] MEDS: Famotidine/PF 20 mg/2ml Vial SLOW IVP SCH ×2 (08:08→20:25)
[2020-09-27] MEDS: Enoxaparin Sodium 40 MG/0.4 ML SYRINGE SC SCH (08:08)
[2020-09-27 09:25] LABS: Anion Gap 13 mmol/L (10-20); BUN (Urea Nitrogen) 9 mg/dL (9.8-20.1); Calc. Creatinine Clearance 131 mL/min (70-130); Calcium 8.9 mg/dL (7.8-10.44); Carbon Dioxide 24 mmol/L (23-31); Chloride 108 mmol/L (98-107); Estimated GFR-MDRD Greater than 90; Glucose 113 mg/dL (80-115); Potassium 3.4 mmol/L (3.5-5.1); Sodium 142 mmol/L (136-145)
[2020-09-27] MEDS ORDERED: hydrALAZINE 20 MG/ML VIAL SLOW IVP PRN (09:27)
--- NOTE | 2020-09-27 12:16 | RAD ---
Upper GI/small bowel follow-through 09/27/2020 COMPARISON: None HISTORY: Small bowel obstruction, prior gastric bypass surgery FINDINGS: Communications Maintainer radiograph of the abdomen/pelvis demonstrates a nasogastric tube in the left upper qu adrant and postoperative clips in the right upper quadrant. Numerous suture lines are noted within the left abdomen. The patient was administered Gastrografin via the nasogastric tube. Initially, a very small gastric p ouch fills. This contrast media then extends through a gastrojejunostomy without delay. The contrast media initially fills multiple mildly/moderately dilated loops of small bowel within the lat eral aspect of the left abdomen. Contrast media fills proximal jejunum in the left upper quadrant which extends into the mid left abdomen and then curls back into the left upper quadrant, subsequentl y extending into the left lower quadrant. The jejunojejunostomy is felt to be within this region. The contrast media then extends medially into the central aspect of the abdomen opacifying small carley l loops. A slight delay is seen with respect to passage of the contrast media into the mid right abdomen. This slight delay appears distal to the jejunojejunostomy. This correlates with the area of small bowel narrowing seen on recent CT examination. Then, contrast media fills nondilated loops of small bowel. By 15 minutes the contrast media has reac hed the junction of the terminal ileum and the cecum. At 30 minutes the contrast media is within the colon at the hepatic flexure and by 1 hour the contrast media reached the rectum. IMPRESSION: Mildly/moderately dilated small bowel loops are seen within the left abdomen with no evid ence for small bowel obstruction.
[2020-09-27] MEDS ORDERED: MD-Gastroview 120 ML BOT ONE (15:34)
--- NOTE | 2020-09-27 16:28 | PDOC.GSPN ---
Surgery Progress Note: Subj - Subjective Narrative: Doing much better. Underwent UGI with no evidence of obstruction and contrast with rapid transit to colon. Surgery Progress Note: Obj - Vital signs Vital signs: Vital Signs - Most Recent Temp Pulse Resp BP Pulse Ox 97.1 F L 68 18 172/88 H 99 09/27/20 16:10 09/27/20 16:10 09/27/20 16:10 09/27/20 16:10 09/27/20 16:10 - Physical Exam General: no distress, well developed, well nourished Cardiovascular: regular rate and rhythm Respiratory: clear to auscultation, normal expansion, normal respiratory effort, breath sounds present Abdomen: soft, non tender, nondistended, positive bowel sounds Surgery Progress Note: Results - Labs Result Diagrams: 09/27/20 06:16 09/27/20 08:51 Lab results: Laboratory Results - last 12 hr 09/27/20 09/27/20 06:16 08:51 WBC 8.5 RBC 4.47 Hgb 13.1 Hct 40.1 MCV 89.6 MCH 29.3 MCHC 32.7 RDW 12.7 Plt Count 159 MPV 8.9 Neutrophils % 66.4 Lymphocytes % 23.2 Monocytes % 8.9 Eosinophils % 1.2 Basophils % 0.2 Neutrophils # 5.6 Lymphocytes # 2.0 Monocytes # 0.8 H Eosinophils # 0.1 Basophils # 0.0 Sodium 142 Potassium 3.4 L Chloride 108 H Carbon Dioxide 24 Anion Gap 13 BUN 9 L Creatinine 0.61 Estimated GFR (MDRD) Greater than 90 Glucose 113 Calcium 8.9 - Radiology Interpretation CT scan - abdomen Additional comments: UGI reviewed as well as interpretation. Demonstrates contrast flow to colon and no obstruction. Surgery Progress Note: A/P - Problem (1) Small bowel obstruction Current Visit: Yes Code(s): K56.609 - UNSP INTESTNL OBST, UNSP TO PARTIAL VERSUS COMPLETE OBST Status: Acute - Plan Plan: Resolved. Start on bariatric liquid diet and advance with bowel function. Recommend daily bowel regimen.
--- NOTE | 2020-09-27 18:55 | PDOC.HOSPP ---
- Subjective Encounter Date: 09/27/20 Encounter Time: 18:53 Subjective: pt up in bed feels well - Objective Vital Signs & Weight: Vital Signs (12 hours) Temp Pulse Resp BP BP Pulse Ox 09/27/20 16:10 97.1 F L 68 18 172/88 H 99 09/27/20 11:44 98.3 F 68 18 167/85 H 99 09/27/20 11:41 97.8 F 76 18 156/82 H 93 L 09/27/20 08:00 98.4 F 66 16 151/75 H 98 Weight Admit Weight 191 lb Weight 191 lb I&O: 09/26/20 09/27/20 09/28/20 07:59 06:59 06:59 Intake Total 1227 Output Total Balance 1227 Result Diagrams: 09/27/20 06:16 09/27/20 08:51 Hospitalist ROS - Review of Systems Cardiovascular: denies: chest pain, palpitations, orthopnea, paroxysmal noc. dyspnea, edema, light headedness, other Gastrointestinal: denies: nausea, vomiting, abdominal pain, diarrhea, constipation, melena, hematochezia, other Genitourinary: denies: dysuria, frequency, incontinence, hematuria, retention, other - Medication Medications: Active Medications Generic Name Dose Route Start Last Admin Trade Name Freq PRN Reason Stop Dose Admin Acetaminophen 325 mg 09/26/20 14:18 09/27/20 02:14 Acetaminophen 325 Mg Suppository DE 325 mg Q6H PRN Administration Headache/Fever or Pain Atorvastatin Calcium 10 mg 09/26/20 21:00 09/26/20 20:05 Atorvastatin Calcium 10 Mg Tab PO Not Given HS GARRET Duloxetine HCl 90 mg 09/26/20 09:00 09/27/20 08:01 Duloxetine 60 Mg Cap PO Not Given DAILY GRARET Enoxaparin Sodium 40 mg 09/26/20 09:00 09/27/20 08:08 Enoxaparin Sodium 40 Mg/0.4 Ml Syringe SC 40 mg 0900 GARRET Administration Famotidine 20 mg 09/26/20 09:00 09/27/20 08:08 Famotidine/Pf 20 Mg/2ml Vial SLOW IVP 20 mg Q12HR GARRET Administration Gabapentin 300 mg 09/26/20 09:00 09/27/20 08:01 Gabapentin 300 Mg Cap PO Not Given DAILY GARRET Levothyroxine Sodium 125 mcg 09/27/20 06:00 09/27/20 06:16 Levothyroxine Sodium 125 Mcg Tab PO Not Given 0600 GARRET Ondansetron HCl 4 mg 09/26/20 14:18 09/26/20 14:45 Ondansetron Pf 4 Mg/2 Ml Vial IVP 4 mg Q6H PRN Administration Nausea/Vomiting - Exam Heart: negative: RRR, no murmur, no gallops, no rubs, normal peripheral pulses, irregular, diminshed peripheral pulses, murmur present, II/IV, III/IV Respiratory: negative: CTAB, no wheezes, no rales, no ronchi, normal chest expansion, no tachypnea, normal percussion, rales, rhonchi, tachypneic, wheezes Gastrointestinal: negative: soft, non-tender, non-distended, normal bowel sounds, no palpable masses, no hepatomegaly, no splenomegaly, no bruit, no guarding, no rigidity, tender to palpation, distended, diminished bowl sounds, voluntary guarding Extremities: negative: no cyanosis, no clubbing, no edema, 1+ LE edema, 2+ LE edema, clubbing Hosp A/P (1) Obesity Code(s): E66.9 - OBESITY, UNSPECIFIED Status: Acute (2) Small bowel obstruction Code(s): K56.609 - UNSP INTESTNL OBST, UNSP TO PARTIAL VERSUS COMPLETE OBST Status: Acute (3) Hypothyroid Code(s): E03.9 - HYPOTHYROIDISM, UNSPECIFIED Status: Acute - Plan pt's ng tube out, doing well on clear liquids possible discharge in am. will stop fluids.
[2020-09-27] MEDS: Atorvastatin Calcium 10 MG TAB PO SCH (20:26)
[2020-09-27 23:12] LABS: SARS-CoV-2 MS2 Positive; SARS-CoV-2 N Gene Negative; SARS-CoV-2 S Gene Negative; SARS-CoV-2 by NAA Not Detected (Not Detected); SARS-CoV-2 orf1ab Negative
[2020-09-27] MEDS ORDERED: Acetaminophen 325 MG TAB PO PRN (23:55)
[2020-09-28] MEDS: Levothyroxine Sodium 125 MCG TAB PO SCH (05:27)
[2020-09-28] MEDS ORDERED: Polyethylene Glycol 3350 17 GM Packet PO SCH (09:00)
[2020-09-28] MEDS: Gabapentin 300 MG CAP PO SCH (09:23)
[2020-09-28] MEDS: Famotidine/PF 20 mg/2ml Vial SLOW IVP SCH (09:24)
[2020-09-28] MEDS: Enoxaparin Sodium 40 MG/0.4 ML SYRINGE SC SCH (09:24)
[2020-09-28] MEDS ORDERED: DULoxetine 30 MG CAP PO SCH (09:30)
--- NOTE | 2020-09-28 10:18 | PDOC.BPN ---
- Brief Progress Note Encounter Date: 09/28/20 Doing well s/p upper GI with small bowel follow-through. Pain resolved. Tolerating regular bariatric diet, without nausea or vomiting. Endorses flatus and bowel movements. Ambulating independently. EXAM: VS: T 98.1 HR 60 BP 167/89 RR 20 SpO2 [ ] General: Alert and oriented, no acute distress, resting comfortably Pulmonary: No dyspnea or difficulty breathing Abdomen: Soft, non-distended, nontender CV: Regular rate and rhythm, palpable distal pulses Extremities: No edema I/O: [ ] oral intake [ ] UOP LABORATORY / IMAGING: No new labs PLAN: 64-year-old female status post vertical banded gastroplasty revised to small pouch gastric bypass with partial small bowel obstruction, now resolved. Okay for discharge Warning signs discussed Follow-up information provided for long-term bariatric surgery care
[2020-09-28] MEDS: DULoxetine 60 MG CAP PO SCH (11:07)
[2020-09-28 12:25] VITALS: BP 178/96; TEMP 97.8
[2020-09-29] MEDS ORDERED: DULoxetine 30 MG CAP PO SCH (09:00)
--- NOTE | 2020-09-29 09:39 | DIS ---
DATE OF ADMISSION: 09/26/2020 DATE OF DISCHARGE: 09/28/2020 DISCHARGE DIAGNOSES: 1. Small-bowel obstruction, resolved. 2. Hypertension. 3. Hypothyroidism. HOSPITAL COURSE: The patient is a 64-year-old female who initially presented to the hospital with abdominal pain, nausea, vomiting. She was noted to have a CAT scan done, which indicated a mild small-bowel obstruction. At this time, the patient was seen by General Surgery. She had an NG tube placement. She also had a small-bowel follow-through. The patient's NG tube was removed. She tolerated her diet well. Her bowel obstruction resolved without any abnormalities. She had some initial mildly elevated troponins. We did an echo, which indicated an EF of 60% to 65% with mild tricuspid regurgitation, mild mitral regurgitation; however, it was normal. At this time, the patient will be discharged home. She will follow up with her primary and also with Surgery as an outpatient. She has been added only MiraLAX to keep her bowels regular. Her rest of the home medications were resumed. The patient was seen and examined on the day of discharge. PHYSICAL EXAMINATION: VITAL SIGNS: Temperature 97.8, heart rate 63, respirations 20, saturations 98% on room air, blood pressure 167/89. GENERAL: She is awake, alert, and oriented x3. Does not appear in distress. CV: S1 and S2 present. No murmurs, rubs, or gallops. DISPOSITION: Again, she will be discharged home. FOLLOWUP: She will follow up with her primary and Surgery. Job ID: [id number]
== END 2020-09-28 12:24 | disposition home or self-care (01) | DRG 390 ==
LOC: ERS 22:33 → 2NO 09-26 00:06 → T4-A 09-26 17:55
PROVIDERS: ADMIT Internal Medicine; ATTEND Internal Medicine
PROC: 0D9670Z Drainage of Stomach with Drainage Device, Via Natural or Artificial Opening (ICD-10-PCS; principal; 2020-09-26)
DX: K56.609 Unspecified intestinal obstruction, unspecified as to partial versus complete obstruction (principal); E78.00 Pure hypercholesterolemia, unspecified; F32.9 Major depressive disorder, single episode, unspecified; E11.9 Type 2 diabetes mellitus without complications; R77.8 Other specified abnormalities of plasma proteins; E03.9 Hypothyroidism, unspecified; E66.9 Obesity, unspecified; Z98.51 Tubal ligation status; Z90.49 Acquired absence of other specified parts of digestive tract; Z79.899 Other long term (current) drug therapy; Z68.30 Body mass index [BMI] 30.0-30.9, adult; Z20.828 Contact with and (suspected) exposure to other viral communicable diseases
CPT/HCPCS: 36415; 71045; 74018; 74240; 80048; 84484; 85025; 87635; 93306; 99285; J1200; J1650; J2405; Q9963; S0028; U0003

== ENCOUNTER 2021-06-02 12:03 | Outpatient (CLI) | payer OTHER | END 2021-06-02 12:04 | disposition home or self-care (01) | LOC: BICMAMMO 12:03 | PROVIDERS: ATTEND Nurse Practitioner | DX: Z12.31 Encounter for screening mammogram for malignant neoplasm of breast (principal) | CPT/HCPCS: 77063; 77067 ==

== ENCOUNTER 2023-06-02 13:32 | Outpatient (CLI) | payer MEDICARE, OTHER | END 2023-06-02 13:33 | disposition home or self-care (01) | LOC: BICCT 13:32 | PROVIDERS: ATTEND Nurse Practitioner | DX: R91.8 Other nonspecific abnormal finding of lung field (principal) | CPT/HCPCS: 71250 ==

== ENCOUNTER 2023-07-13 12:21 | Outpatient (CLI) | payer MEDICARE, OTHER | END 2023-07-13 12:22 | disposition home or self-care (01) | LOC: BICMAMMO 12:21 | PROVIDERS: ATTEND Nurse Practitioner | DX: Z12.31 Encounter for screening mammogram for malignant neoplasm of breast (principal); N63.23 Unspecified lump in the left breast, lower outer quadrant | CPT/HCPCS: 77063; 77067 ==

== ENCOUNTER 2023-07-21 07:50 | Outpatient (CLI) | payer MEDICARE, OTHER | END 2023-07-21 07:51 | disposition home or self-care (01) | LOC: BICMAMMO 07:50 | PROVIDERS: ATTEND Nurse Practitioner | DX: N63.23 Unspecified lump in the left breast, lower outer quadrant (principal) | CPT/HCPCS: 76642; 77065; G0279 ==

== ENCOUNTER 2023-08-17 13:27 | Outpatient (CLI) | payer MEDICARE, OTHER ==
[2023-08-17 15:41] LABS: Anion Gap 13 mmol/L (10-20); BUN (Urea Nitrogen) 13 mg/dL (9.8-20.1); Calc. Creatinine Clearance 0 mL/min (70-130); Carbon Dioxide 30 mmol/L (23-31); Chloride 101 mmol/L (98-107); Estimated GFR 97; Glucose 104 mg/dL (80-115); Potassium 3.4 mmol/L (3.5-5.1); Sodium 141 mmol/L (136-145)
[2023-08-17 15:43] LABS: #Monocytes 0.6 10x3/uL (0.0-1.1); #Neutrophils 3.1 10x3/uL (1.5-8.4); %Basophils 0.7 % (0.0-2.0); %Eosinophils 0.7 % (0.0-6.0); %Monocytes 9.9 % (0.0-10.0); %Neutrophils 52.5 % (40.0-75.0); Hematocrit 44.4 % (34.9-44.5); Hemoglobin 14.1 g/dL (12.0-15.5); Mean Corpuscular HGB CONC 31.8 g/dL (32.0-36.0); Mean Corpuscular Volume 84.9 fl (81.6-98.3); Platelet Count 201 10x3/uL (150-450); RBC Distribution Width 13.3 % (11.5-14.5); Red Blood Cell (RBC) Count 5.23 10x6/uL (3.90-5.03); White Blood Cell (WBC) Count 5.8 10x3/uL (3.5-10.5)
== END 2023-08-17 13:28 | disposition home or self-care (01) ==
LOC: LABBT 13:27
PROVIDERS: ATTEND Specialist
DX: Z01.818 Encounter for other preprocedural examination (principal); D05.02 Lobular carcinoma in situ of left breast
CPT/HCPCS: 71046; 80048; 85025; 93005; 93010

== ENCOUNTER 2024-08-23 13:02 | Outpatient (CLI) | payer MEDICARE, OTHER | END 2024-08-23 13:03 | disposition home or self-care (01) | LOC: BICMAMMO 13:02 | PROVIDERS: ATTEND Specialist | DX: D05.02 Lobular carcinoma in situ of left breast (principal); Z86.000 Personal history of in-situ neoplasm of breast; D52.9 Folate deficiency anemia, unspecified; E66.9 Obesity, unspecified; Z79.899 Other long term (current) drug therapy | CPT/HCPCS: 77066; 82306; 82607; 83036; 83540; 83970; 84425; G0279; 36415 ==

== ENCOUNTER 2024-09-12 10:14 | Outpatient (CLI) | payer MEDICARE, OTHER | END 2024-09-12 10:15 | disposition home or self-care (01) | LOC: BICMAMMO 10:14 | PROVIDERS: ATTEND Internal Medicine | DX: M85.88 Other specified disorders of bone density and structure, other site (principal); C50.412 Malignant neoplasm of upper-outer quadrant of left female breast; M81.0 Age-related osteoporosis without current pathological fracture | CPT/HCPCS: 77080 ==